=== PATIENT | male | born 1950 | race Hispanic/Latino ===

== ENCOUNTER 2017-05-05 07:31 | Day surgery (SDC) | payer MEDICARE ==
[2017-04-23 10:06] VITALS: BMI 25.0
[2017-05-05] MEDS ORDERED: Propofol 10 mg/ml Inj (20 ML) ONE (08:41)
[2017-05-05] MEDS ORDERED: Sodium Chloride 0.9% 1,000 ML IV SCH (09:30)
[2017-05-05 10:28] VITALS: BP 125/78; PULSE 70; RESP 16; TEMP 98.1; O2SAT 98
== END 2017-05-05 10:50 | disposition home or self-care (01) ==
LOC: ENDO 07:31
PROVIDERS: ATTEND Internal Medicine Gastroenterology
DX: K57.30 Diverticulosis of large intestine without perforation or abscess without bleeding (principal); K64.8 Other hemorrhoids; K21.9 Gastro-esophageal reflux disease without esophagitis; K86.2 Cyst of pancreas; Z86.010 Personal history of colon polyps
CPT/HCPCS: 45380; 88305; J2001; J2704; J7040